=== PATIENT | male | born 1985 | race Caucasian/White ===

== ENCOUNTER 2017-04-04 22:20 | Emergency (ER) | payer MEDICAID ==
[2017-04-04 22:27] VITALS: BP 132/96; PULSE 90; RESP 18; TEMP 98.2; O2SAT 96
--- NOTE | 2017-04-04 22:40 | EDPHY ---
H & P Time Seen by Provider: 04/04/17 22:27 HPI/ROS: CHIEF COMPLAINT: Odontalgia HISTORY OF PRESENT ILLNESS: 32-year-old immunocompetent male postop day to post bilateral mandibular 3rd molar extraction states that he ate some food this evening felt immediate pain at the extraction sites. He took 2 Vicodin and Motrin states that his pain is now a 2/10. Having never experienced this type of pain he came to the emergency department as he was concerned. No fever no chills. No nausea no vomiting. He is taking prophylactic antibiotics. PHYSICAL EXAM (Prior to examination, patient consented to physical exam, hands were washed and my usual and customary physical exam procedures followed) 1) GENERAL: Well-developed, well-nourished, alert and oriented. Appears to be in no acute distress. 2) HEAD: Normocephalic 3) HEENT: sclera anicteric . No trismus no drooling. No hot potato voice. Extraction sites appear to be granulating appropriately with no signs of infection. Localized tenderness to percussion only. Floor of mouth soft no evidence of Aidan's angina. Submental submandibular spaces are soft. No adenopathy. No induration. 4) LUNGS: Breathing comfortably. Smoking Status: Current every day smoker Constitutional: Initial Vital Signs Temperature (C) 36.8 C 04/04/17 22:23 Heart Rate 90 04/04/17 22:23 Respiratory Rate 18 04/04/17 22:23 Blood Pressure 132/96 H 04/04/17 22:23 O2 Sat (%) 96 04/04/17 22:23 O2 Delivery Mode Room Air Allergies/Adverse Reactions: No Known Allergies Allergy (Unverified 04/04/17 22:23) Home Medications: Medication Instructions Recorded Hydrocodone/APAP 5/325 [[place] 1 tab PO Q6 PRN #10 tab 04/04/17 5/325 (RX)] Minocycline HCl 04/04/17 MDM/Departure - MDM ED Course/Re-evaluation: Doubt Aidan's angina, doubt abscess. Pain is currently 2/10. He is about to run out of Vicodin. At this time I do not think that emergent oral surgery consultation indicated nor do I identify indication for imaging studies. Recommend he continue his medication regimen of antibiotics, before ibuprofen will give him a small prescription for Vicodin. Recommend follow up with his oral surgeon on April 06 as today is [place]. Usual and customary oropharyngeal precautions and instructions provided. Care of patient under supervision of secondary supervising physician Dr Lopez . - Depart Disposition: Home, Routine, Self-Care Clinical Impression: Odontalgia Condition: Good Instructions: Toothache (ED) Additional Instructions: Return to the ER immediately if you cannot swallow, have drooling, fevers, neck stiffness, cannot open your jaw, or any other symptoms that concern you. Prescriptions: Hydrocodone/APAP 5/325 [[place] 5/325 (RX)] 1 tab PO Q6 PRN #10 tab PRN Reason: Pain, Severe Referrals: Call, your oral surgeon on 04/06 [Other] - As per Instructions
== END 2017-04-04 22:47 | disposition home or self-care (01) ==
DX: K08.89 Other specified disorders of teeth and supporting structures (principal); F17.200 Nicotine dependence, unspecified, uncomplicated